=== PATIENT | male | born 1975 | race Two or more races ===

== ENCOUNTER → 2019-04-11 | Outpatient (CLI) | payer OTHER ==
--- NOTE | 2019-04-11 16:36 | RAD ---
Exam performed: CT scan of the head without contrast. Date of Service: 04/11/2019. Comparison: None available. Clinical History: Patient fell 12 feet and hit posterior aspect of the head, loss of consciousness for 20 minutes. Technique: Helical acquisitions are obtained from the foramen magnum to the vertex without intravenous administration of contrast. Findings: The ventricles are midline without evidence of dilatation. Normal cerna-white differentiation is maintained. There is no extra axial fluid collection, intraparenchymal hemorrhage or mass lesion. The visualized portions of the orbits, paranasal sinuses and the mastoid air cells appear clear. The calvarium is intact. Impression: 1. No acute intracranial process detected. PQRS Compliance Statement: One or more of the following individualized dose reduction techniques were utilized for this examination: 1. Automated exposure control 2. Adjustment of the mA and/or kV according to patient size 3. Use of iterative reconstruction technique Electronically signed by: Mini Chatterjee MD (04/11/2019 4:33 PM) [id number]
== END | disposition home or self-care (01) ==
LOC: CT 14:07
PROVIDERS: ATTEND Preventive Medicine Occupational Medicine
DX: S06.891A Other specified intracranial injury with loss of consciousness of 30 minutes or less, initial encounter (principal); X58.XXXA Exposure to other specified factors, initial encounter; Y93.89 Activity, other specified; Y92.89 Other specified places as the place of occurrence of the external cause; Y99.8 Other external cause status
CPT/HCPCS: 70450

== ENCOUNTER → 2019-04-18 | Outpatient (CLI) | payer OTHER ==
[~2019-04-18] MED LIST: CONTRAST GIVEN. MC PRN; IOHEXOL 240 MG/ML 50ML VIAL. PO ONE; IOHEXOL 300 MG/ML 100ML VIAL. IV ONE
--- NOTE | 2019-04-18 15:06 | RAD ---
Examination: CT ABD PELV W/ORAL IV CONTRAST History: Left inguinal mass Comparison/Correlation: None Findings: Axial images of the abdomen and pelvis were obtained following IV contrast. Oral contrast was also administered. Sagittal and coronal reformatted images were provided. Left lateral basilar calcified granulomas present. Gallbladder fossa is unremarkable. Liver is normal. Spleen is normal. Pancreas is unremarkable. Adrenal glands are normal. Kidneys are unremarkable. Moderate quantity of stool in the colon is evident. Appendix is normal. No extraluminal gas. Urinary bladder is unremarkable. No enlarged abdominal or pelvic lymph nodes. Stranding in the left inguinal region is present. This includes about the left spermatic cord. There is no definite mass lesion identified. Bony structures are unremarkable. Impression: Left inguinal region stranding. Correlate with underlying history of trauma or concentric process. No suspicious mass is suspected. Correlate clinically in determining interval follow-up. PQRS Compliance Statement: One or more of the following individualized dose reduction techniques were utilized for this examination: 1. Automated exposure control 2. Adjustment of the mA and/or kV according to patient size 3. Use of iterative reconstruction technique Electronically signed by: Angel Schwarz MD (04/18/2019 3:02 PM) [id number]
== END | disposition home or self-care (01) ==
LOC: CT 12:10
PROVIDERS: ATTEND Preventive Medicine Occupational Medicine
DX: R19.09 Other intra-abdominal and pelvic swelling, mass and lump (principal); J84.10 Pulmonary fibrosis, unspecified; R55 Syncope and collapse; I10 Essential (primary) hypertension; E11.9 Type 2 diabetes mellitus without complications; F17.200 Nicotine dependence, unspecified, uncomplicated; Z79.01 Long term (current) use of anticoagulants; Z95.0 Presence of cardiac pacemaker
CPT/HCPCS: 74177; Q9966; Q9967